=== PATIENT | female | born 1975 | race Two or more races ===

== ENCOUNTER 2020-10-16 23:13 | Emergency (ER) | payer MEDICAID ==
[~2020-10-16] VITALS: Ht 152.4 cm; Wt 60.0 kg
[2020-10-17] MEDS ORDERED: DIPHENHYDRAMINE 50MG CAPSULE PO ONE (00:15)
[2020-10-17] MEDS ORDERED: PREDNISONE 20MG TABLET PO ONE (00:15)
[2020-10-17] MEDS ORDERED: FAMOTIDINE 20MG TABLET PO ONE (00:15)
[2020-10-17] MEDS ORDERED: PRED10TA23 MT (01:06)
[2020-10-17] MEDS ORDERED: DIPH25CA83 MT (01:06)
[2020-10-17 01:31] VITALS: BP 108/58
== END 2020-10-17 01:48 | disposition home or self-care (01) ==
LOC: ER 23:13
DX: L29.9 Pruritus, unspecified (principal); T39.315A Adverse effect of propionic acid derivatives, initial encounter; Y92.018 Other place in single-family (private) house as the place of occurrence of the external cause
CPT/HCPCS: 99284; J7512; Q0163